=== PATIENT | male | born 1975 | race African-American/Black ===

== ENCOUNTER 2020-09-19 07:31 | Emergency (ER) | payer SELFPAY ==
[~2020-09-19] VITALS: Ht 193 cm; Wt 71.8 kg
[2020-09-19 07:41] VITALS: BP 129/92
--- NOTE | 2020-09-19 07:54 | NUR ---
Pt woke up yesterday with facial swelling, took Benadryl and ibuprofen without relief. R side pain and upper lip swelling. TARA Vyas to bedside for eval.
== END 2020-09-19 08:27 | disposition home or self-care (01) ==
LOC: ED 08:04
DX: K02.9 Dental caries, unspecified (principal); K08.89 Other specified disorders of teeth and supporting structures; F17.200 Nicotine dependence, unspecified, uncomplicated
CPT/HCPCS: 99283

== ENCOUNTER 2020-10-15 00:52 | Emergency (ER) | payer SELFPAY ==
[~2020-10-15] VITALS: Ht 188 cm; Wt 69.2 kg
--- NOTE | 2020-10-15 01:08 | NUR ---
INITIAL PT CONTACT. PT PRESENTS TO ED C/O LEFT SIDED HEADACHE X1 WEEK, PROGRESSIVELY WORSENING AND "LYMPPH NODE SWELLING ON THE LEFT SIDE." PT HAS HX OF MIRGRAINES AND DENIES SIMILAR FEELING. PT HAS BEEN TAKING IBP, ASA, & TYL S RELIEF. LAST DOSE OF TYLENOL AT 0000. PT ANXIOUS AND TEARFUL UPON EXAMINATION. PT SITTING UPRIGHT ON GURNEY, PLACED ON CONTINUOUS MONITORING. CALL LIGHT AND BELONGINGS WITHIN REACH. AWAITING ERP
--- NOTE | 2020-10-15 01:24 | NUR ---
ERP AT BEDSIDE
[2020-10-15] MEDS ORDERED: BUPIVACAINE 0.25% ONE (01:35)
[2020-10-15] MEDS ORDERED: LIDOCAINE-MPF 1%, 2ML ONE (01:35)
[2020-10-15 01:56] LABS: HCT (SEDRATE) 35.8 % (39.2-51.8)
[2020-10-15 01:58] LABS: BASOPHILS % (AUTO) 1 % (0-1); EOSINOPHILS % (AUTO) 2 % (1-7); LYMPHOCYTES % (AUTO) 23 % (22-44); MEAN CORPUSCULAR HEMOGLOBIN 26.9 pg (27.5-34.5); MEAN PLATELET VOLUME 7.6 fL (7.4-10.4); MONOCYTES % (AUTO) 8 % (2-9); NEUTROPHILS % (AUTO) 66 % (42-75); PLATELET COUNT 294 x10^3/uL (130-400); RED BLOOD COUNT 4.35 x10^6/uL (4.38-5.82); RED CELL DISTRIBUTION WIDTH 18.1 % (9.4-14.8)
--- NOTE | 2020-10-15 01:58 | NUR ---
PT SUPINE ON GURNEY, RESTING COMFORTABLY WITH EYES CLOSED. PT REPORTS PAIN RELIEF FOLLOWING [employer] BY ERP. PT DENIES ANY ADDITIONAL NEEDS AT THIS TIME. CALL LIGHT AND BELONGINGS WITHIN REACH.
[2020-10-15] MEDS ORDERED: LIDOCAINE-MPF 1%, 2ML INFIL ONE (02:00)
[2020-10-15] MEDS ORDERED: LIDOCAINE 1%, 10ML INFIL ONE (02:00)
[2020-10-15] MEDS ORDERED: BUPIVACAINE/PF 0.25% INFIL ONE (02:00)
[2020-10-15] MEDS ORDERED: BUPIVACAINE 0.25% INFIL ONE (02:00)
[2020-10-15 02:07] LABS: ALBUMIN 3.4 g/dL (3.4-5.0); ANION GAP 4 mmol/L (5-15); C-REACTIVE PROTEIN, QUANT 0.48 mg/dL (0.02-0.49); CALCIUM 8.8 mg/dL (8.5-10.1); CHLORIDE 110 mmol/L (98-107); CREATININE 1.09 mg/dL (0.7-1.3)
--- NOTE | 2020-10-15 02:30 | NUR ---
pt sleeping c lights turned down. rr even non labored. will ctm. vss
[2020-10-15] MEDS ORDERED: DEXAMETHASONE 4 MG/ML, 1ML ONE (03:35)
[2020-10-15 03:39] VITALS: BP 128/83
--- NOTE | 2020-10-15 03:41 | NUR ---
Patient given discharge instructions and they have confirmed that they understand the instructions. Patient ambulatory with steady gait.
[2020-10-15] MEDS ORDERED: DEXAMETHASONE 4 MG/ML, 1ML IVPush SCH (04:00)
[2020-10-15] MEDS ORDERED: DEXAMETHASONE 4 MG/ML, 1ML IVPush ONE (04:00)
== END 2020-10-15 03:47 | disposition home or self-care (01) ==
LOC: ED 01:22
DX: M54.81 Occipital neuralgia (principal); R51.9 Headache, unspecified
CPT/HCPCS: 36415; 64405; 80048; 82040; 85025; 85651; 86140; 99284